=== PATIENT | female | born 1955 | race Caucasian/White ===

== ENCOUNTER 2016-11-21 09:41 | Day surgery (SDC) | payer OTHER ==
[~2016-11-21] VITALS: Ht 175.3 cm; Wt 100.0 kg
[~2016-11-21 09:41] MED LIST: 0.9% Sodium Chloride 1,000 ML IV SCH; ALBU8.5H2 INHALATION; ALPR0.5T8 PO; ASPI-973 PO; BUPR100T15 PO; CHOL4PAC PO; CITA40TA13 PO; DIAZ5TAB3 PO; FEXO180T85 PO; HYDR-4003 PO; INSULIN PUMP SQ; LEVO200T6 PO; LIP40 PO; LOPE2CAP PO; LOSA25TA21 PO; Sodium Chloride LOK Flush 10 mL Syringe IV PRN; fentaNYL-PF 50 mCg/mL 2 mL Inj IVPUSH PRN
[2016-11-21 10:17] VITALS: BP 143/72; PULSE 79; RESP 14; O2SAT 98
--- NOTE | 2016-11-21 11:20 | PCM.ENDCOL ---
Colonoscopy Date of Service: Nov 21, 2016 Physician Sd Graves MD Pre Procedure Diagnosis: Diarrhea history of polyps Post Procedure Dx & Findings: Polyp hemorrhoids normal anastomosis site Procedure Colonoscopy PROCEDURE IN DETAIL: Prep [default value] Withdrawal time[default value] After unremarkable rectal examination the Olympus video colonoscope was inserted patient's anal canal and was advanced to anastomosis site. Scope further advanced to the small intestines. Advanced 10 cm. Visualized small bowel showed normal villous structures without any ulcer mass erosive. Scope was withdrawn systematically. Visualized colonic mucosa showed healthy shiny mucosa with normal healthy-appearing vasculature. There was a 1 mm polyp at the anastomosis site. This was removed completely with cold forceps. In the transverse colon there were 2 polyps. They were about 3-6 mm in size and they were both removed completely using cold snare. In the rectum, there are 2 polyps. 2-3 mm in size. These were all removed completely using cold snare. Random biopsies were done from the anastomosis site to the rectum for workup of diarrhea. In the rectum retroflexion was done which showed hemorrhoids. Anal canal was inspected carefully on the way out and hemorrhoids noted. Impression Polyp 5 status post complete removal Hemorrhoids Diarrhea History of polyp with right hemicolectomy. Recommendation Repeat colonoscopy 3 years Follow up in GI clinic for diarrhea. Presedation Assessment Risks and Benefits Informed consent was obtained from the patient after all risks and benefits including but not limited to drug reaction, infection, pain, bleeding, perforation, as well as alternatives were discussed. Patient monitoring Continuous pulse oximetry, cardiac monitoring, blood pressure monitoring, IV access, and oxygen at 2L per nasal cannula. Periprocedural Fentanyl: Fentanyl 100mcg Incrementally Midazolam: Midazolam 5mg Incrementally Complications There were no periprocedural complications identified. Post Procedure Plan Post Procedure Recommendations 1. Restrict activities today. 2. Resume normal activities in the morning. 3. Resume medications. 4. Patient informed of normal post procedure side effects as bloating, drowsiness, blood streaking in the stool. 5. average risk CRCS. If colon polyps come back as: -Hyperplastic- can repeat colonoscopy in 10 years -Tubular adenoma- repeat colonoscopy in 5 years -Tubulovillous/villous adenoma- repeat colonoscopy in 3 years -If any dysplasia- return to clinic as soon as possible 6. Please don't hesitate to call me with any questions. Sd Graves MD Nov 21, 2016 11:20
[2016-11-21 11:24] VITALS: BP 160/76; PULSE 84; RESP 12; O2SAT 97
[2016-11-21 11:34] VITALS: BP 161/87; PULSE 80; RESP 12; O2SAT 97
--- NOTE | 2016-11-22 16:54 | PATH ---
SURGICAL PATHOLOGY Attending Physician:Sd Graves M.D. CASE STATUS: Signed Out PATIENT NAME: HAMMAD DE PAZ PID: [id number] : 1955 DATE COLLECTED:11/21/2016 19:58 SPECIMEN: 1: Colon, Polyp 2: Colon, Biopsy 3: Colon, Polyp 4: Colon, Polyp CLINICAL HISTORY: 1). ANASTOMOSIS POLYP 2). RANDOM COLON BIOPSY 3). TRANSVERSE POLYPS 4). RECTO-SIGMOID POLYPS FINAL DIAGNOSIS: 1, 3. Anastomosis Polyp, Transverse Colon Polyps, Biopsies: Consistent with polypoid redundancy; colonic mucosa with increased mononuclear cell infiltrate of the lamina propria and patchy intraepithelial lymphocytosis. Negative for dysplasia/adenoma. See Comment. 2. Random Colon, Biopsies: Colonic mucosa with increased mononuclear cell infiltrate of the lamina propria and patchy increased intraepithelial lymphocytosis. See Comment 4. Rectosigmoid Polyps, Biopsies: Hyperplastic polyps. ICD10: K63.5 NOTE: The overall findings are consistent with lymphocytic colitis in the appropriate clinical and endoscopic setting. GROSS DESCRIPTION: The specimen is received in four formalin filled containers labeled with the patient's name. 1). The specimen is labeled "anastomosis and "and consists of a 0.1 x 0.1 x 0.1 CM portion of tissue which is entirely submitted in cassette 1A. 2). The specimen is labeled "random colon" and consists of multiple portions of tissue which aggregate to 0.4 x 0.4 x 0.2 CM. The specimen is entirely submitted in cassette 2A. 3). The specimen is labeled "transverse polyps" and consists of are multiple fragments of morris, soft tissue which aggregate to 0.4 x 0.4 x 0.2 CM. The specimen is entirely submitted in cassette 3A. 4). The specimen is labeled "recto-sigmoid polyp" and consists of 2 portions of tissue which aggregate to 0.5 x 0.3 x 0.3 CM. The specimen is entirely submitted in cassette 4A. 11/21/2016DC ICD-9 CODES: CPT CODES: 1: 45395 2: 40082 3: 71516 4: 75666 Electronically Signed Out Bryan Messer MD, Ph.D. [facility] Pathology [facility] [address] [place] [id number] Technical component performed at [facility], [address], [place], [address]
== END 2016-11-21 23:59 | disposition home or self-care (01) ==
LOC: END 09:41
PROVIDERS: ATTEND Internal Medicine
DX: R19.7 Diarrhea, unspecified (principal); K63.5 Polyp of colon; K52.832 Lymphocytic colitis; K64.8 Other hemorrhoids; Z86.010 Personal history of colon polyps; J44.9 Chronic obstructive pulmonary disease, unspecified; E11.9 Type 2 diabetes mellitus without complications; E78.2 Mixed hyperlipidemia; G47.33 Obstructive sleep apnea (adult) (pediatric); E03.9 Hypothyroidism, unspecified; F32.9 Major depressive disorder, single episode, unspecified; F41.9 Anxiety disorder, unspecified; E66.9 Obesity, unspecified; Z68.33 Body mass index [BMI] 33.0-33.9, adult; Z72.0 Tobacco use; Z79.51 Long term (current) use of inhaled steroids; Z79.82 Long term (current) use of aspirin; Z79.4 Long term (current) use of insulin
CPT/HCPCS: 45380; 99153; G0500; J2250; J3010; J7030